=== PATIENT | female | born 1990 | race American Indian/Alaskan Native ===

== ENCOUNTER 2021-05-17 19:13 | Emergency (ER) | payer SELFPAY ==
[2021-05-17 19:26] VITALS: BP 115/74
[2021-05-17] MEDS ORDERED: TETANUS,DIPH,PERTUSS(ACELL) VACCINE 0.5 ML SYRINGE IM ONE (19:34)
[2021-05-17] MEDS ORDERED: HYDROcodone/ACETAMINOPHEN 5-325 MG TAB PO ONE (19:34)
--- NOTE | 2021-05-17 19:36 | Event Note ---
ED Screening Note ED Screening Note: Patient presents for a laceration to the right hand that occurred just prior to arrival Patient states that she was carrying a pair of cable cutting scissors in her hand when she accidentally cut herself She is unsure of her last tetanus Small laceration to the right palm, no bleeding This initial assessment/diagnostic orders/clinical plan/treatment(s) is/are subject to change based on patients health status, clinical progression and re- assessment by fellow clinical providers in the ED. Further treatment and workup at subsequent clinical providers discretion. Patient/guardian urged not to elope from the ED as their condition may be serious if not clinically assessed and managed. Initial orders include: xr, tdap, med
--- NOTE | 2021-05-17 20:16 | XRay Report ---
RIGHT HAND 4 VIEWS INDICATION: right hand laceration, cut by scissors. COMPARISON: No relevant prior imaging study available. FINDINGS: No acute skeletal abnormality. No soft tissue foreign bodies. IMPRESSION: 1. No acute findings. Signer Name: Corky Sotelo MD Signed: 05/17/2021 8:12 PM Workstation Name: [id number]
[2021-05-17] MEDS ORDERED: NEOMY 3.5 MG/BACIT 400 UNITS/POLY B 5000 UNITS/GM OINT PACKET TP ONE (20:48)
--- NOTE | 2021-05-17 22:05 | Emergency Department Report ---
ED Upper Extremity Inj HPI - General Chief Complaint: Wound/Laceration Stated Complaint: HAND INJURY Time Seen by Provider: 05/17/21 20:45 Source: patient Mode of arrival: Ambulatory Limitations: No Limitations - History of Present Illness Initial Comments: 30-year-old female [facility] emerge department complaining of right palmar hand injury after she was carrying a pair of scissors in her right hand when she turned the corner ran into an object causing them to stab her in the palm of her hand resulting in bleeding swelling and pain prior to arrival. Pain is dull and throbbing worse with palpation and range of motion she is unsure about her tetanus status. Complaint: Injury to:: right -: Sudden Other Extremity Injury: Hand: Right Other Injuries: none Handedness: right Place: home Improves With: none Worsens With: movement of extremity Context: direct blow Associated Symptoms: denies other symptoms - Related Data Previous Rx's Medication Instructions Recorded Last Taken Type Chlorhexidine Gluconate [Hibiclens] 5 ml TP BID #240 05/17/21 Unknown Rx cephALEXin [Keflex] 500 mg PO Q8HR #21 cap 05/17/21 Unknown Rx Allergies Allergy/AdvReac Type Severity Reaction Status Date / Time No Known Allergies Allergy Unverified 05/17/21 19:33 ED Review of Systems ROS: Stated complaint: HAND INJURY Other details as noted in HPI Comment: All other systems reviewed and negative ED Past Medical Hx - Past Medical History Previous Medical History?: No - Surgical History Past Surgical History?: No - Social History Smoking Status: Never Smoker Substance Use Type: Alcohol - Medications Home Medications: Home Medications Medication Instructions Recorded Confirmed Last Taken Type Chlorhexidine Gluconate [Hibiclens] 5 ml TP BID #240 05/17/21 Unknown Rx cephALEXin [Keflex] 500 mg PO Q8HR #21 cap 05/17/21 Unknown Rx ED Physical Exam - General Limitations: No Limitations General appearance: alert, in no apparent distress - Head Head exam: Present: atraumatic, normocephalic - Eye Eye exam: Present: normal appearance, PERRL, EOMI Pupils: Present: normal accommodation - ENT ENT exam: Present: normal exam, normal orophraynx, mucous membranes moist, TM's normal bilaterally - Neck Neck exam: Present: normal inspection, full ROM - Respiratory Respiratory exam: Present: normal lung sounds bilaterally. Absent: respiratory distress, wheezes, rales, chest wall tenderness, accessory muscle use - Cardiovascular Cardiovascular Exam: Present: regular rate, normal rhythm, normal heart sounds. Absent: systolic murmur, diastolic murmur, rubs, gallop - GI/Abdominal GI/Abdominal exam: Present: soft, normal bowel sounds - Extremities Exam Extremities exam: Present: normal inspection, tenderness, normal capillary refill - Expanded Upper Extremity Exam Right Shoulder Exam: Present: full ROM Upper Arm exam: Present: normal inspection, full ROM Elbow exam: Present: normal inspection, full ROM Forearm Wrist exam: Present: normal inspection, swelling Hand Wrist exam: Present: normal inspection Hand L/R Front: 1 - Positive: laceration (Puncture wound to this region.) - Back Exam Back exam: Present: normal inspection. Absent: CVA tenderness (R), CVA tenderness (L) - Neurological Exam Neurological exam: Present: alert, oriented X3, CN II-XII intact, normal gait - Psychiatric Psychiatric exam: Present: normal affect, normal mood - Skin Skin exam: Present: warm, dry, intact, normal color. Absent: rash ED Course Vital Signs 05/17/21 05/17/21 19:19 19:42 Temperature 97.7 F Pulse Rate 100 H Respiratory 18 18 Rate Blood Pressure 115/74 O2 Sat by Pulse 100 Oximetry ED Medical Decision Making - Radiology Data Radiology results: report reviewed [facility] [address] [place] [address] XRay Report Signed Patient: RICKY REYES MR#: [id number] : 1990 Acct:[id number] Age/Sex: 30 / F ADM Date: 05/17/21 Loc: ED Attending Dr: Ordering Physician: SYDNEY KOROMA Date of Service: 05/17/21 Procedure(s): XR hand 3+V RT Accession Number(s): [id number] cc: SYDNEY KOROMA Fluoro Time In Minutes: RIGHT HAND 4 VIEWS INDICATION: right hand laceration, cut by scissors. COMPARISON: No relevant prior imaging study available. FINDINGS: No acute skeletal abnormality. No soft tissue foreign bodies. IMPRESSION: 1. No acute findings. Signer Name: Corky Sotelo MD Signed: 05/17/2021 8:12 PM Workstation Name: [id number] Transcribed By: ADALBERTO Dictated By: Corky Sotelo MD Electronically Authenticated By: Corky Sotelo MD Signed Date/Time: 05/17/212011 DD/ 10 TD/TT: Print Cancel - Medical Decision Making 30-year-old female status post puncture wound to the right hand with pain snips bleeding is controlled with a bulky dressing. Wound was cleaned and dressed with antimicrobial dressing she was advised to follow-up every 2 to 3 days for wound reevaluation and discharged on antibiotics and antimicrobial soap as well. Tetanus shot was provided during the visit emergency department today Critical care attestation.: If time is entered above; I have spent that time in minutes in the direct care of this critically ill patient, excluding procedure time. ED Disposition Clinical Impression: Puncture wound, Tetanus toxoid inoculation Disposition: HOME / SELF CARE / HOMELESS Is pt being admited?: No Does the pt Need Aspirin: No Condition: Stable Instructions: Stab Wound, Puncture Wound, Wound Care, Adult, VIS, Tetanus, Diphtheria (Td); Tetanus, Diphtheria, Pertussis (Tdap) - CDC Prescriptions: Chlorhexidine Gluconate [Hibiclens] 5 ml TP BID #240 cephALEXin [Keflex] 500 mg PO Q8HR #21 cap Referrals: [facility] [Provider Group] - 3-5 Days
== END 2021-05-17 22:12 | disposition home or self-care (01) ==
LOC: ED 19:13
DX: S61.431A Puncture wound without foreign body of right hand, initial encounter (principal); Z23 Encounter for immunization; Z72.89 Other problems related to lifestyle; Z79.899 Other long term (current) drug therapy; W27.2XXA Contact with scissors, initial encounter; Y93.89 Activity, other specified; Y92.89 Other specified places as the place of occurrence of the external cause; Y99.8 Other external cause status
CPT/HCPCS: 90471; 90715; 99283